=== PATIENT | female | born 1995 | race African-American/Black ===

== ENCOUNTER 2016-09-16 09:28 | Inpatient (IN) | payer MEDICAID ==
[~2016-09-16] VITALS: Ht 157.5 cm; Wt 42.2 kg
[2016-09-16 10:32] LABS: BASOPHILS # (AUTO) 0.03 K/uL (0.00-0.20); BASOPHILS % (AUTO) 0.3 % (0.0-2.0); EOSINOPHILS # (AUTO) 0.05 K/uL (0.00-0.70); EOSINOPHILS % (AUTO) 0.59 % (1.0-6.0); HEMATOCRIT 39.5 % (36-46); HEMOGLOBIN 13.2 g/dL (12.0-16.0); LYMPHOCYTES # (AUTO) 2.9 K/uL (1.0-4.8); MEAN CORPUSCULAR HEMOGLOBIN 28.1 pg (26.0-34.0); MEAN CORPUSCULAR HGB CONC 33.4 G/dL (31.0-37.0); MEAN CORPUSCULAR VOLUME 84 fL (80-100); MONOCYTES # (AUTO) 0.6 K/uL (0.1-1.0); MONOCYTES % (AUTO) 7.4 % (2.0-9.0); NEUTROPHILS # (AUTO) 4.3 K/uL (1.8-7.7); NEUTROPHILS % (AUTO) 54.6 % (40.0-70.0); PLATELET COUNT (AUTO) 385 K/uL (150-450); RED BLOOD CELL COUNT(AUTO) 4.69 MIL/uL (4.00-5.20); RED CELL DISTRIBUTION WIDTH 15.6 % (11.5-14.5); WHITE BLOOD COUNT (AUTO) 7.9 K/uL (4.5-11.0)
[2016-09-16 10:44] LABS: ANION GAP 9 mmol/L (8-16); CALCIUM, TOTAL 8.8 mg/dL (8.8-10.5); CARBON DIOXIDE 27 mmol/L (22-29); CHLORIDE 103 mmol/L (98-107); CREATININE 0.93 mg/dL (0.60-1.30); GLOMERULAR FILTR. RATE CALC > 60 mL/min (>60); POTASSIUM 3.5 mmol/L (3.5-5.1); SODIUM SERUM 139 mmol/L (136-145); UREA NITROGEN, BLOOD 11 mg/dL (7-18)
[2016-09-16] MEDS ORDERED: HALOPERIDOL 5 MG TABLET PO ONE (10:45)
[2016-09-16 10:50] LABS: ALANINE AMINOTRANSFERASE 19 U/L (12-78); ALBUMIN 4.2 g/dL (3.4-5.0); ASPARTATE AMINOTRANSFERASE 22 U/L (15-37); BILIRUBIN,TOTAL 0.3 mg/dL (0.1-1.0)
[2016-09-16] MEDS ORDERED: LORazepam 2 MG TABLET PO PRN (11:00)
[2016-09-16] MEDS ORDERED: ZOLPIDEM TARTRATE 10 MG TABLET PO PRN (11:00)
[2016-09-16] MEDS ORDERED: HALOPERIDOL 5 MG TABLET PO PRN (11:00)
[2016-09-16 16:00] VITALS: BP 101/58
[2016-09-16] MEDS ORDERED: PNEUMOCOCCAL VACCINE POLYVALENT 0.5 ML VIAL [PPSV23] IM ONE (16:45)
[2016-09-16] MEDS: HYDROCORTISONE 1% 30 GM OINTMENT TP SCH (18:42)
[2016-09-17 07:17] LABS: CHOL/HDL RATIO 2.3 (3.9-5.7); THYROID STIMULATING HORMONE 0.69 uIU/mL (0.36-3.74)
[2016-09-17] MEDS: HYDROCORTISONE 1% 30 GM OINTMENT TP SCH ×2 (08:02→16:10)
[2016-09-17] MEDS: RisperiDONE 0.5 MG TABLET PO SCH ×2 (08:02→16:10)
[2016-09-17 08:10] VITALS: BP 102/65
[2016-09-17 16:22] VITALS: BP 105/60
[2016-09-17 16:23] VITALS: BP 105/60
[2016-09-18 08:15] VITALS: BP 115/59
[2016-09-18] MEDS: HYDROCORTISONE 1% 30 GM OINTMENT TP SCH ×2 (08:46→18:18)
[2016-09-18] MEDS: RisperiDONE 0.5 MG TABLET PO SCH ×2 (08:46→16:51)
[2016-09-18 16:58] VITALS: BP 123/73
[2016-09-19 09:16] VITALS: BP 93/66
[2016-09-19] MEDS: RisperiDONE 0.5 MG TABLET PO SCH (09:40)
[2016-09-19] MEDS: HYDROCORTISONE 1% 30 GM OINTMENT TP SCH ×2 (09:40→16:42)
[2016-09-19] MEDS: RisperiDONE 1 MG TABLET PO SCH ×2 (10:45→16:42)
[2016-09-19 16:29] VITALS: BP 112/67
[2016-09-20 08:15] VITALS: BP 103/64
[2016-09-20] MEDS: HYDROCORTISONE 1% 30 GM OINTMENT TP SCH ×2 (08:32→18:16)
[2016-09-20] MEDS: RisperiDONE 1 MG TABLET PO SCH ×2 (08:32→18:16)
[2016-09-20 22:04] VITALS: BP 96/65
[2016-09-21] MEDS: HYDROCORTISONE 1% 30 GM OINTMENT TP SCH ×2 (08:27→17:13)
[2016-09-21] MEDS: RisperiDONE 1 MG TABLET PO SCH ×2 (08:27→17:14)
[2016-09-21 09:55] VITALS: BP 111/72
[2016-09-21 16:25] VITALS: BP 121/65
[2016-09-22 08:15] VITALS: BP 94/57
[2016-09-22] MEDS: HYDROCORTISONE 1% 30 GM OINTMENT TP SCH ×2 (08:57→17:58)
[2016-09-22] MEDS: RisperiDONE 1 MG TABLET PO SCH ×2 (08:57→17:57)
[2016-09-22 16:00] VITALS: BP 107/60
[2016-09-23 08:15] VITALS: BP 116/67
[2016-09-23] MEDS: HYDROCORTISONE 1% 30 GM OINTMENT TP SCH ×2 (10:06→16:09)
[2016-09-23] MEDS: RisperiDONE 2 MG TABLET PO SCH ×2 (10:06→16:09)
[2016-09-23 17:22] VITALS: BP 114/70
[2016-09-24 08:00] VITALS: BP 96/66
[2016-09-24] MEDS: RisperiDONE 2 MG TABLET PO SCH ×2 (08:40→16:22)
[2016-09-24] MEDS: HYDROCORTISONE 1% 30 GM OINTMENT TP SCH ×2 (08:41→16:22)
[2016-09-24 19:23] VITALS: BP 103/68
[2016-09-25 08:05] VITALS: BP 97/72
[2016-09-25] MEDS: RisperiDONE 2 MG TABLET PO SCH ×2 (08:09→16:25)
[2016-09-25] MEDS: HYDROCORTISONE 1% 30 GM OINTMENT TP SCH ×2 (08:09→16:25)
[2016-09-26 08:12] VITALS: BP 118/68
[2016-09-26] MEDS: RisperiDONE 2 MG TABLET PO SCH ×2 (08:42→16:25)
[2016-09-26] MEDS: HYDROCORTISONE 1% 30 GM OINTMENT TP SCH ×2 (08:42→16:29)
[2016-09-26 16:15] VITALS: BP 101/59
[2016-09-27] MEDS: RisperiDONE 2 MG TABLET PO SCH (08:42)
[2016-09-27] MEDS: HYDROCORTISONE 1% 30 GM OINTMENT TP SCH (08:42)
[2016-09-27 09:02] VITALS: BP 108/61
[2016-09-27] MEDS ORDERED: RISP2 PO (12:59)
[2016-09-27] MEDS ORDERED: HC1C1.5 TP (14:09)
== END 2016-09-27 16:00 | disposition home or self-care (01) | DRG 751 ==
LOC: EMS 09:31 → EEVIPCON 09:31 → 3EC 15:12
PROVIDERS: ADMIT Psychiatry & Neurology Psychiatry; ATTEND Psychiatry & Neurology Psychiatry
DX: F29 Unspecified psychosis not due to a substance or known physiological condition (principal); F15.20 Other stimulant dependence, uncomplicated; Z81.8 Family history of other mental and behavioral disorders; Z88.0 Allergy status to penicillin; Z59.0 Homelessness; Z71.51 Drug abuse counseling and surveillance of drug abuser; Z28.21 Immunization not carried out because of patient refusal
CPT/HCPCS: 84436; 84439; 84443; 99285; G0480